=== PATIENT | male | born 1955 | race Caucasian/White ===

== ENCOUNTER → 2021-11-03 | Outpatient (CLI) | payer OTHER | LOC: HEART 5 10:50 | DX: J44.9 Chronic obstructive pulmonary disease, unspecified (principal) | CPT/HCPCS: 94060; 94729 ==

== ENCOUNTER → 2021-11-03 | Outpatient (CLI) | payer OTHER | LOC: RT 12:24 | DX: R09.02 Hypoxemia (principal) | CPT/HCPCS: 36600; 82803 ==